=== PATIENT | male | born 1985 | race Two or more races ===

== ENCOUNTER → 2024-11-06 | Outpatient (CLI) | payer OTHER, SELFPAY ==
--- NOTE | 2024-11-06 | XR_ITS ---
Examination: Lumbar spine, 5 views Technique: Lumbar spine AP, lateral, coned lateral lower lumbar spine, bilateral obliques 5 views Exam date and time: November 06, 2024 1125 hours INDICATIONS: Injury to lower back today, lower back pain. FINDINGS: Adequate alignment lumbar vertebral bodies No acute lumbar fracture Mild diffuse lumbar disc narrowing IMPRESSION: No acute lumbar fracture
--- NOTE | 2024-11-06 | XR_ITS ---
Examination: Thoracic spine 3 views Technique one AP lateral coned lateral upper dorsal spine 3 views Date and time: November 06, 2024 1125 hours INDICATIONS: Mid back pain post injury today. FINDINGS: No acute thoracic fracture Moderate thoracic spondylosis Intact pedicles IMPRESSION: No acute thoracic fracture
== END | disposition home or self-care (01) ==
PROVIDERS: PCP Nurse Practitioner Family; Referring Provider Nurse Practitioner Family; Visit Provider Nurse Practitioner Family
DX: S20.223A Contusion of bilateral back wall of thorax, initial encounter (principal); S30.0XXA Contusion of lower back and pelvis, initial encounter
CPT/HCPCS: 72070; 72110

== ENCOUNTER → 2024-11-09 | Outpatient (CLI) | payer OTHER, SELFPAY ==
--- NOTE | 2024-11-09 10:16 | XR_ITS ---
Examination: Bilateral ribs with PA chest upright 6 views TECHNIQUE: Upright PA chest, RPO LPO right and left ribs, AP, bilateral AP lower ribs total 6 views Date and time: November 09, 2024 10:55 AM INDICATIONS: Injury 3 days ago to the chest with bilateral rib pain FINDINGS: Normal heart size. No pneumothorax. Mild osteopenia. No acute rib fractures. IMPRESSION: No pneumothorax pulmonary contusion or hemothorax No acute rib fractures depicted
== END | disposition home or self-care (01) ==
LOC: CDIM 10:01
PROVIDERS: Referring Provider Family Medicine; Visit Provider Physician Assistant
DX: S20.223 Contusion of bilateral back wall of thorax (principal); X58.XXXD Exposure to other specified factors, subsequent encounter
CPT/HCPCS: 71110